=== PATIENT | female | born 1995 | race Two or more races ===

== ENCOUNTER 2018-01-29 15:21 | Outpatient (CLI) | payer OTHER | END 2018-01-29 15:48 | disposition home or self-care (01) | LOC: MAMO-SONO 15:21 | DX: N60.11 Diffuse cystic mastopathy of right breast (principal); N60.12 Diffuse cystic mastopathy of left breast ==

== ENCOUNTER 2022-07-20 19:50 | Emergency (ER) | payer OTHER ==
[~2022-07-20] VITALS: Ht 170.2 cm; Wt 68.9 kg
== END 2022-07-21 00:25 | disposition home or self-care (01) ==
LOC: ER 19:50
DX: O23.42 Unspecified infection of urinary tract in pregnancy, second trimester (principal); N39.0 Urinary tract infection, site not specified; Z3A.23 23 weeks gestation of pregnancy; Z20.822 Contact with and (suspected) exposure to COVID-19

== ENCOUNTER 2022-08-21 09:40 | Outpatient (CLI) | payer OTHER | END 2022-08-21 10:40 | disposition home or self-care (01) | LOC: PRENATAL 09:40 | PROVIDERS: ATTEND Obstetrics & Gynecology Maternal & Fetal Medicine | DX: O35.9XX0 Maternal care for (suspected) fetal abnormality and damage, unspecified, not applicable or unspecified (principal); O35.3XX0 Maternal care for (suspected) damage to fetus from viral disease in mother, not applicable or unspecified; Z3A.27 27 weeks gestation of pregnancy ==

== ENCOUNTER 2022-10-03 08:39 | Outpatient (CLI) | payer OTHER | END 2022-10-03 09:45 | disposition home or self-care (01) | LOC: PRENATAL 08:39 | PROVIDERS: ATTEND Obstetrics & Gynecology Maternal & Fetal Medicine | DX: O26.849 Uterine size-date discrepancy, unspecified trimester (principal); O36.8199 Decreased fetal movements, unspecified trimester, other fetus; O35.9XX0 Maternal care for (suspected) fetal abnormality and damage, unspecified, not applicable or unspecified; Z3A.33 33 weeks gestation of pregnancy ==

== ENCOUNTER 2022-11-08 14:30 | Inpatient (IN) | payer OTHER ==
[~2022-11-08] VITALS: Ht 170.2 cm; Wt 3.6 kg
[2022-11-20] MEDS ORDERED: PRENATA CHEWAB1 EACH PO (08:56)
== END 2022-11-24 13:13 | disposition home or self-care (01) | DRG 788 ==
LOC: OB/GYN 11-15 14:30 → LDR 11-20 07:51 → O/R 11-21 22:57 → OB/GYN 11-22 01:04
PROVIDERS: Student in an Organized Health Care Education/Training Program; ADMIT Obstetrics & Gynecology; ATTEND Obstetrics & Gynecology
PROC: 4A1HXCZ Monitoring of Products of Conception, Cardiac Rate, External Approach (ICD-10-PCS; 2022-11-20)
PROC: 10D00Z1 Extraction of Products of Conception, Low, Open Approach (ICD-10-PCS; principal; 2022-11-21 22:00)
DX: O62.1 Secondary uterine inertia (principal); Z3A.40 40 weeks gestation of pregnancy; Z37.0 Single live birth; Z20.822 Contact with and (suspected) exposure to COVID-19

== ENCOUNTER 2024-03-02 13:53 | Outpatient (CLI) | payer OTHER ==
[~2024-03-02 13:53] MED LIST: PRENATA CHEWAB1 EACH PO
== END 2024-03-02 13:54 | disposition home or self-care (01) ==
LOC: PRENATAL 13:53
PROVIDERS: ATTEND Obstetrics & Gynecology Maternal & Fetal Medicine
DX: O35.3XX0 Maternal care for (suspected) damage to fetus from viral disease in mother, not applicable or unspecified (principal); O44.00 Complete placenta previa NOS or without hemorrhage, unspecified trimester; Z3A.27 27 weeks gestation of pregnancy

== ENCOUNTER 2024-05-19 11:15 | Inpatient (IN) | payer OTHER ==
[~2024-05-19] VITALS: Ht 170.2 cm; Wt 83.9 kg
[2024-05-19 13:02] LABS: HEMATOCRIT 34.9 % (36.0-45.00); HEMOGLOBIN 11.8 g/dL (12.0-15.00); MEAN CELL VOLUME 83.6 fL (80.00-100.00); MEAN CORPUSCULAR HEMOGLOBIN 28.3 pg (27.00-32.0); MEAN CORPUSCULAR HGB CONC 33.9 g/dl (32.0-36.0); PLATELET COUNT 215 K/uL (150-450); RED BLOOD COUNT 4.18 M/uL (4.00-6.00); RED CELL DISTRIBUTION WIDTH 12.6 % (11.5-14.5)
[2024-05-19 13:25] LABS: URINE BILIRRUBIN NEGATIVE (NEGATIVE); URINE BLOOD NEGATIVE; URINE GLUCOSE NEGATIVE (NEGATIVE); URINE KETONE NEGATIVE (NEGATIVE); URINE LEUKOCYTE SMALL; URINE NITRATE NEGATIVE; URINE PROTEIN NEGATIVE (NEGATIVE); URINE UROBILINOGEN 0.2 E.U./dl
[2024-05-19 13:26] LABS: INR < 0.93; PARTIAL THROMBOPLASTIN TIME 28.1 SECONDS (22.0-34.0)
[2024-05-19 13:37] LABS: URINE APPEARANCE CLOUDY; URINE COLOR YELLOW
[2024-05-19 13:38] LABS: URINE BACTERIA MANY; URINE EPITHELIAL CELLS LOADED /HPF; URINE MUCUS SCANT; URINE RBC 0-3 /HPF; URINE WBC 13-20 /hpf
[2024-05-19 14:05] LABS: ALBUMIN 2.8 gm/dL (3.4-5.0); BILIRUBIN TOTAL 1.03 mg/dL (0.3-1.2); CALCIUM 8.5 mg/dL (8.5-10.1); CREATININE SERUM 0.53 mg/dL (0.55-1.02); GFR 137.36; GLOBULINA 4.2 G/DL (2.4-3.5); POTASSIUM 3.88 mEq/L (3.5-5.1)
[2024-05-24 12:27] VITALS: BP 115/78
[2024-05-24] MEDS ORDERED: ERYTHROMYCIN BASE OPHT 1GM EACH TUBE OP ONE (15:15)
[2024-05-24] MEDS ORDERED: CEFAZOLIN SODIUM 1,000 MG VIAL IV SCH (15:15)
[2024-05-24] MEDS ORDERED: OXYTOCIN 10 UNITS/ML VIAL IV ONE (15:30)
[2024-05-24] MEDS ORDERED: PROMETHAZINE HCL 25 MG/ML AMPUL IV PRN (16:30)
[2024-05-24] MEDS ORDERED: OXYTOCIN 1,000 ML IV SCH (16:30)
[2024-05-24] MEDS ORDERED: KETOROLAC TROMETHAMINE 30 MG VIAL IV PRN (16:30)
[2024-05-24] MEDS ORDERED: MEPERIDINE HCL/PF 50 MG/ML VIAL IV PRN (16:30)
[2024-05-24] MEDS ORDERED: SIMETHICONE 125 MG CAPSULE PO SCH (17:00)
[2024-05-24 18:50] VITALS: BP 117/70
[2024-05-24 20:29] LABS: HEMATOCRIT 34.6 % (36.0-45.00); HEMOGLOBIN 11.4 g/dL (12.0-15.00); MEAN CELL VOLUME 84.7 fL (80.00-100.00); PLATELET COUNT 198 K/uL (150-450); RED BLOOD COUNT 4.08 M/uL (4.00-6.00); RED CELL DISTRIBUTION WIDTH 12.6 % (11.5-14.5)
[2024-05-25 00:39] VITALS: BP 117/76
[2024-05-25] MEDS ORDERED: IBUprofen 800 MG TABLET PO PRN (07:00)
[2024-05-25] MEDS ORDERED: OxyCODONE HCL/APAP UD (PERCOCET) PO PRN (07:00)
[2024-05-25 07:49] VITALS: BP 109/67
[2024-05-25] MEDS ORDERED: DOCUSATE SODIUM 100MG CAP PO SCH (09:00)
[2024-05-25 15:43] VITALS: BP 117/73
[2024-05-26 00:58] VITALS: BP 110/70
[2024-05-26 08:05] VITALS: BP 113/69
[2024-05-26] MEDS ORDERED: IBU800 MG PO (08:50)
[2024-05-26] MEDS ORDERED: SURFAK240 M1 PO (08:50)
== END 2024-05-26 13:41 | disposition home or self-care (01) | DRG 785 ==
LOC: O/R 05-24 12:11 → OB/GYN 05-24 12:11
PROVIDERS: ADMIT Student in an Organized Health Care Education/Training Program; ATTEND Student in an Organized Health Care Education/Training Program
PROC: 0UB70ZZ Excision of Bilateral Fallopian Tubes, Open Approach (ICD-10-PCS; 2024-05-24)
PROC: 4A1HXCZ Monitoring of Products of Conception, Cardiac Rate, External Approach (ICD-10-PCS; 2024-05-24)
PROC: 10D00Z1 Extraction of Products of Conception, Low, Open Approach (ICD-10-PCS; principal; 2024-05-24 10:30)
DX: O34.211 Maternal care for low transverse scar from previous cesarean delivery (principal); O99.824 Streptococcus B carrier state complicating childbirth; Z3A.39 39 weeks gestation of pregnancy; Z37.0 Single live birth; Z30.2 Encounter for sterilization; Z20.822 Contact with and (suspected) exposure to COVID-19